=== PATIENT | male | born 2000 | race African-American/Black ===

== ENCOUNTER 2021-04-01 21:53 | Emergency (ER) | payer OTHER, SELFPAY ==
--- NOTE | ~2021-04-01 | XR_ITS ---
EXAMINATION: XR chest 1V portable DATE: 04/01/2021 23:01 INDICATION: Dyspnea TECHNIQUE: frontal view of the chest was obtained. COMPARISON: None FINDINGS: The lungs are clear with no focal airspace opacities, pulmonary edema, pleural effusion or pneumothor ax. The cardiomediastinal silhouette is normal. Visualized bones and soft tissues are unremarkable. IMPRESSION: 1. No acute cardiopulmonary disease. Reviewed, dictated and finalized at location A.
[2021-04-01 21:53] VITALS: BP 161/69; PULSE 119; RESP 30; O2SAT 98
[2021-04-01 22:00] VITALS: PULSE 122; RESP 21
--- NOTE | 2021-04-01 22:00 | ECG_ITS ---
Measurements Intervals [place] Rate: 100 P: 66 MN: 137 QRS: 78 QRSD: 106 T: 57 QT: 354 QTc: 457 Interpretive Statements SINUS TACHYCARDIA MINIMAL Q WAVES- INFERIOR LEADS BASELINE ARTIFACT- I, II, III, AVR, AVL, AVF, V1, V3-V6 BORDERLINE ECG Electronically Signed On 04-02-2021 6:45:09 CDT by Mateo Mclean D.O.
[2021-04-01 23:08] VITALS: PULSE 97; RESP 16
[2021-04-01 23:18] VITALS: BP 132/70; PULSE 88; RESP 20; O2SAT 95
[2021-04-01 23:23] LABS: Basophils Absolute Auto 0.1 K/mm3 (0.0-0.1); Basophils Percent Auto 0.6 % (0.2-1.2); Eosinophils Absolute Auto 0.6 K/mm3 (0-0.3); Eosinophils Percent Auto 3.5 % (0-4.4); Hematocrit 47.1 % (42.0-52.0); Hemoglobin 15.8 g/dL (14.0-18.0); Immature Granulocyte Absolute 0.07 K/mm3 (0.00-0.031); Immature Granulocyte Percent A 0.4 % (0-0.5); Lymphocytes Absolute Auto 1.27 K/mm3 (0.9-3.2); Lymphocytes Percent Auto 7.8 % (18.3-44.2); Mean Corpuscular HGB Conc 33.5 g/dl (32-36); Mean Corpuscular Hemoglobin 30.2 pg (26-34); Mean Corpuscular Volume 89.9 fl (80-100); Mean Platelet Volume 9.2 fl (7.4-10.4); Monocytes Absolute Auto 0.9 K/mm3 (0.1-0.6); Monocytes Percent Auto 5.3 % (2.6-8.5); Neutrophils Absolute Auto 13.4 K/mm3 (1.3-6.7); Neutrophils Percent Auto 82.4 % (45.5-73.1); Platelet Count Result 319 k/mm3 (150-375); Red Blood Count 5.24 M/mm3 (4.6-6.20); Red Cell Distribution Width 11.7 % (11.5-14.5); White Blood Count 16.3 K/mm3 (4.5-10.0)
[2021-04-01 23:31] LABS: Anion Gap 12 mmol/L (8-16); Blood Urea Nitrogen 15 mg/dL (9-20); Calcium 9.8 mg/dL (8.4-10.2); Carbon Dioxide 28 mmol/L (22-30); Chloride 100 mmol/L (98-107); Estimated CRCL calculation 97 ml/min; Estimated Glomerular Filt Rate > 60; Glucose 130 mg/dL (65-110); Potassium 3.9 mmol/L (3.4-5.0); Sodium 140 mmol/L (137-145)
--- NOTE | 2021-04-01 23:46 | ED.GENADULT ---
HPI - General Adult General Chief complaint: Shortness of Breath/Dyspnea Stated complaint: Asthma Attack Time Seen by Provider: 04/01/21 21:55 History of Present Illness HPI narrative: Patient 20-year-old gentleman who presents the emergency department with chief complaint of shortness of breath. Patient has history of asthma and has not required hospitalization or intubation before in the past patient states that he ran out of his inhaler and reports that with the local weather change it is triggered his asthma the patient reports this evening he had a severe attack EMS was called patient was given magnesium and Decadron and a nebulizer treatment. Upon arrival to the emergency department the patient was extremely short of breath and was continued on a continuous nebulizer treatment. Related Data Allergies Allergy/AdvReac Type Severity Reaction Status Date / Time No Known Allergies Allergy Verified 04/01/21 22:01 Review of Systems Review of Systems: A 10 system review of systems was completed on the patient and is negative except for what is stated in the HPI. Nursing and ancillary documentation was reviewed. Exam Narrative: GENERAL: Well-appearing, well-nourished, and in mild respiratory distress. HEAD: Normocephalic, atraumatic. EYES: PERRLA and EOMI. ENT: Nares clear, no rhinorrhea or epistaxis. Mucous membranes moist. NECK: Supple. CHEST: Clear to auscultation. No respiratory distress. HEART: Regular rate and rhythm. No murmur heard. Normal peripheral pulses. ABDOMEN: Soft, nontender, nondistended, normal active bowel sounds. EXTREMITIES: Normal range of motion. No edema. SKIN: Warm, dry, no rash. NEURO: No focal deficits. Alert and oriented x3. PSYCH: Normal mood and affect. Course Vital Signs Vital signs: Vital Signs Pulse Rate 119 H 04/01/21 21:53 Respiratory Rate 30 H 04/01/21 21:53 Blood Pressure 161/69 H 04/01/21 21:53 Pulse Oximetry 98 04/01/21 21:53 Pulse Rate 88 04/01/21 23:18 Respiratory Rate 20 04/01/21 23:18 Blood Pressure 132/70 04/01/21 23:18 Pulse Oximetry 95 04/01/21 23:18 Medical Decision Making Vital Signs Vital Signs: Vital Signs Pulse Rate 119 H 04/01/21 21:53 Respiratory Rate 30 H 04/01/21 21:53 Blood Pressure 161/69 H 04/01/21 21:53 Pulse Oximetry 98 04/01/21 21:53 Pulse Rate 88 04/01/21 23:18 Respiratory Rate 20 04/01/21 23:18 Blood Pressure 132/70 04/01/21 23:18 Pulse Oximetry 95 04/01/21 23:18 Lab Data Result diagrams: 04/01/21 23:05 04/01/21 23:05 Labs: Lab Results 04/01/21 04/01/21 Range/Units 23:05 23:05 WBC 16.3 H (4.5-10.0) K/mm3 RBC 5.24 (4.6-6.20) M/mm3 Hgb 15.8 (14.0-18.0) g/dL Hct 47.1 (42.0-52.0) % MCV 89.9 (80-100) fl MCH 30.2 (26-34) pg MCHC 33.5 (32-36) g/dl RDW 11.7 (11.5-14.5) % Plt Count 319 (150-375) k/mm3 MPV 9.2 (7.4-10.4) fl Immature Gran % (Auto) 0.4 (0-0.5) % Neut % (Auto) 82.4 H (45.5-73.1) % Lymph % (Auto) 7.8 L (18.3-44.2) % [place] % (Auto) 5.3 (2.6-8.5) % Eos % (Auto) 3.5 (0-4.4) % Baso % (Auto) 0.6 (0.2-1.2) % Lymph # (Auto) 1.27 (0.9-3.2) K/mm3 [place] # (Auto) 0.9 H (0.1-0.6) K/mm3 Eos # (Auto) 0.6 H (0-0.3) K/mm3 Baso # (Auto) 0.1 (0.0-0.1) K/mm3 Abs Immat Gran (auto) 0.07 H (0.00-0.031) K/mm3 Absolute Neuts (auto) 13.4 H (1.3-6.7) K/mm3 Absolute Nucleated RBC 0.0 (0.0-0.012) K/mm3 Nucleated RBC % 0.0 (0.0-0.2) % Sodium 140 (137-145) mmol/L Potassium 3.9 (3.4-5.0) mmol/L Chloride 100 (98-107) mmol/L Carbon Dioxide 28 (22-30) mmol/L Anion Gap 12 (8-16) mmol/L BUN 15 (9-20) mg/dL Creatinine 1.20 (0.7-1.3) mg/dL Estim Creat Clear Calc 97 ml/min Estimated GFR > 60 (59 - ) Glucose 130 H (65-110) mg/dL Calcium 9.8 (8.4-10.2) mg/dL Discharge Plan Discharge Clinical Impression: Asthma with exacerbation Quali
[2021-04-01 23:59] VITALS: BP 129/75; PULSE 87; RESP 22; O2SAT 97
== END 2021-04-02 00:02 | disposition home or self-care (01) ==
PROVIDERS: Emergency Provider Emergency Medicine; PCP Internal Medicine Infectious Disease
DX: J45.901 Unspecified asthma with (acute) exacerbation (principal)
CPT/HCPCS: 36415; 71045; 80048; 85025; 93005; 94640; 99283